=== PATIENT | female | born 1945 | race Caucasian/White ===

== ENCOUNTER 2018-04-21 12:56 | Emergency (ER) | payer MEDICARE ==
[~2018-04-21] VITALS: Ht 147.3 cm; Wt 68.5 kg
[~2018-04-21 12:56] MED LIST: ALBU90OI INH; ASPI325; ASPI81EC PO; Ativan1 MG PO; BUDE6HFA; CIME400 PO; Cleocin HCl300 MG PO; DICY20 PO; FENT25TP TOP; FLUSAL2505 IH; FURO20; FURO40 PO; GLYMET1.25; HYDACE5 PO; INSUL100I SC; INSULANI SC; INSULIN; LEVSOD150 PO; LEVSOD200; LISI20 PO; LORA10 PO; LORA10ER PO; LOSA50; LOSA50 PO; LOSARTAN POTAS100 MG PO; METF500; METF500C PO; MORP15ER PO; NICO14TP TOP; Nitrostat0.4 MG SL; OXYC15ER PO; OXYCODONE; PRED20 PO; PROM25 PO; Pepcid40 MG PO; RXPROM25 PO; SERT25 PO; SIMVASTATIN; TIOT18; Ventolin Soln3 ML; Zofran8 MG PO
[2018-04-21] MEDS ORDERED: TYLECOD3 PO (15:31)
== END 2018-04-21 15:40 | disposition home or self-care (01) ==
LOC: ER 12:56
DX: S80.212A Abrasion, left knee, initial encounter (principal); W10.9XXA Fall (on) (from) unspecified stairs and steps, initial encounter; Z88.2 Allergy status to sulfonamides; Z79.899 Other long term (current) drug therapy; Z79.82 Long term (current) use of aspirin; Z79.84 Long term (current) use of oral hypoglycemic drugs; I25.10 Atherosclerotic heart disease of native coronary artery without angina pectoris; I50.9 Heart failure, unspecified; J44.9 Chronic obstructive pulmonary disease, unspecified; E11.40 Type 2 diabetes mellitus with diabetic neuropathy, unspecified; I10 Essential (primary) hypertension; F17.200 Nicotine dependence, unspecified, uncomplicated
CPT/HCPCS: 93971; 99283-25

== ENCOUNTER 2018-11-10 13:51 | Emergency (ER) | payer MEDICARE ==
[~2018-11-10] VITALS: Ht 147.3 cm; Wt 69.4 kg
[~2018-11-10 13:51] MED LIST changes: +TYLECOD3 PO
[2018-11-10] MEDS ORDERED: HYDR1TAB94 PO (14:39)
== END 2018-11-10 14:51 | disposition home or self-care (01) ==
LOC: ER 13:51
DX: S42.212A Unspecified displaced fracture of surgical neck of left humerus, initial encounter for closed fracture (principal); W18.30XA Fall on same level, unspecified, initial encounter; Z88.2 Allergy status to sulfonamides; Z79.899 Other long term (current) drug therapy; Z79.82 Long term (current) use of aspirin; Z79.4 Long term (current) use of insulin; I11.0 Hypertensive heart disease with heart failure; I50.9 Heart failure, unspecified; E11.9 Type 2 diabetes mellitus without complications; J44.9 Chronic obstructive pulmonary disease, unspecified; F17.200 Nicotine dependence, unspecified, uncomplicated
CPT/HCPCS: 29105; 73030; 99283-25

== ENCOUNTER 2019-05-10 17:57 | Emergency (ER) | payer MEDICARE ==
[~2019-05-10] VITALS: Ht 147.3 cm; Wt 68.5 kg
[~2019-05-10 17:57] MED LIST changes: +HYDR1TAB94 PO
== END 2019-05-10 21:31 | disposition home or self-care (01) ==
LOC: ER 17:57
DX: S00.03XA Contusion of scalp, initial encounter (principal); E11.9 Type 2 diabetes mellitus without complications; I10 Essential (primary) hypertension; E03.9 Hypothyroidism, unspecified; K21.9 Gastro-esophageal reflux disease without esophagitis; J44.9 Chronic obstructive pulmonary disease, unspecified; F17.200 Nicotine dependence, unspecified, uncomplicated; Z88.2 Allergy status to sulfonamides; Z79.82 Long term (current) use of aspirin; Z79.4 Long term (current) use of insulin; W01.10XA Fall on same level from slipping, tripping and stumbling with subsequent striking against unspecified object, initial encounter
CPT/HCPCS: 70450; 82947; 99284-25

== ENCOUNTER 2019-09-04 15:24 | Emergency (ER) | payer MEDICARE ==
[~2019-09-04] VITALS: Ht 149.9 cm; Wt 75.8 kg
[~2019-09-04 15:24] MED LIST changes: +ASPI81CH PO; -ASPI81EC PO; -METF500; +METF500 PO
[2019-09-04 16:19] LABS: BASOPHILS ABSOLUTE AUTO 0.08 K/mm3 (0.00-0.23); BASOPHILS PERCENT AUTO 1 % (0-2); EOSINOPHILS ABSOLUTE AUTO 0.46 K/mm3 (0.00-0.68); EOSINOPHILS PERCENT AUTO 4 % (0-6); Hematocrit 46.3 % (33.0-51.0); Hemoglobin 14.3 g/dL (11.5-16.0); IMMATURE GRAN ABSOLUTE AUTO 0.03 K/mm3 (0.00-0.10); IMMATURE GRAN PERCENT AUTO 0 % (0-1); LYMPHOCYTES ABSOLUTE AUTO 2.77 K/mm3 (0.84-5.20); LYMPHOCYTES PERCENT AUTO 27 % (21-46); MONOCYTES ABSOLUTE AUTO 0.51 K/mm3 (0.16-1.47); MONOCYTES PERCENT AUTO 5 % (4-13); Mean Corpuscular HGB 26.5 pg (26.0-34.0); Mean Corpuscular HGB Conc 30.9 g/dL (31.5-36.5); Mean Corpuscular Volume 86 fL (80-100); Mean Platelet Volume 8.5 fL (9.1-12.4); NEUTROPHILS ABSOLUTE AUTO 6.62 K/mm3 (1.96-9.15); NEUTROPHILS PERCENT AUTO 63 % (41-73); Platelet Count 313 K/mm3 (150-400); RDW Coefficient Variation 18.5 % (11.7-14.2); RDW Standard Deviation 57.7 fL (35.1-46.3); White Blood Cell Count 10.47 K/mm3 (4.00-11.30)
[2019-09-04 16:47] LABS: Alanine Aminotransfer (ALT/SGP 10 U/L (12-78); Albumin, Blood 3.2 g/dL (3.4-5.0); Albumin/Globulin Ratio 0.8 (0.8-1.8); Alk Phos 118 U/L (50-136); Anion Gap 4 mmol/L (6-16); Aspartate Aminotrans (AST/SGOT 17 U/L (12-37); Bilirubin, Total 0.4 mg/dL (0.1-1.0); Blood Urea Nitrogen 18 mg/dL (8-24); Bun/Creatinine Ratio 21.9 (12.0-20.0); CO2, Blood 33 mmol/L (21-32); Calcium, Blood 8.5 mg/dL (8.5-10.1); Chloride, Blood 99 mmol/L (98-108); Creatinine, Blood 0.82 mg/dL (0.40-1.00); Globulin, Blood 4.2 g/dL (2.2-4.0); Glomerular Filtration Rate >60 (60-); Glucose, Blood 44 mg/dL (70-99); Potassium, Blood 3.3 mmol/L (3.5-5.5); Sodium, Blood 136 mmol/L (136-145); Total Protein, Blood 7.4 g/dL (6.4-8.2)
[2019-09-04] MEDS ORDERED: ESCI20 PO (17:09)
[2019-09-04] MEDS ORDERED: Humulin N100 UNIT/1 SC (17:12)
[2019-09-04] MEDS ORDERED: Prednisone50 MG PO (17:17)
[2019-09-04] MEDS ORDERED: Zithromax250 MG PO (17:17)
== END 2019-09-04 19:49 | disposition home or self-care (01) ==
LOC: ER 15:24
PROVIDERS: Physician Assistant
DX: J44.9 Chronic obstructive pulmonary disease, unspecified (principal); E11.65 Type 2 diabetes mellitus with hyperglycemia; E11.40 Type 2 diabetes mellitus with diabetic neuropathy, unspecified; I11.0 Hypertensive heart disease with heart failure; I50.9 Heart failure, unspecified; E03.9 Hypothyroidism, unspecified; K21.9 Gastro-esophageal reflux disease without esophagitis; I25.10 Atherosclerotic heart disease of native coronary artery without angina pectoris; M47.9 Spondylosis, unspecified; Z88.2 Allergy status to sulfonamides; Z79.82 Long term (current) use of aspirin; Z79.51 Long term (current) use of inhaled steroids; Z79.4 Long term (current) use of insulin
CPT/HCPCS: 36415; 71046; 80053; 82947; 83880; 85025; 94640; 99284-25; J7512